=== PATIENT | male | born 1990 | race Caucasian/White ===

== ENCOUNTER 2018-11-27 10:01 | Emergency (ER) | payer OTHER ==
[~2018-11-27] VITALS: Ht 185.4 cm; Wt 72.7 kg
[2018-11-27] MEDS ORDERED: NORCO 325 MG-51 TA1 PO (10:49)
[2018-11-27 10:55] VITALS: BP 131/70
== END 2018-11-27 11:00 | disposition home or self-care (01) ==
LOC: ED 10:01
DX: S92.402A Displaced unspecified fracture of left great toe, initial encounter for closed fracture (principal); S91.312A Laceration without foreign body, left foot, initial encounter; W22.8XXA Striking against or struck by other objects, initial encounter; Y92.69 Other specified industrial and construction area as the place of occurrence of the external cause; Y99.0 Civilian activity done for income or pay